=== PATIENT | male | born 1960 | race Caucasian/White ===

== ENCOUNTER 2022-11-27 08:27 | Emergency (ER) | payer BC ==
[2022-11-27 08:44] VITALS: RESP 18
[2022-11-27] MEDS ORDERED: SODIUM CHLORIDE 0.9% 500 ML 500 ML IV STA (09:17)
[2022-11-27 09:47] LABS: ALT 35 U/L (4-49); AST 35 U/L (17-59); African American GFR (CKD) >90 (>60 ml/min/1.73 sqM); Albumin 4.4 g/dL (3.5-5.0); Alkaline Phosphatase 54 U/L (38-126); Anion Gap 7 mmol/L; Blood Urea Nitrogen 15 mg/dL (9-20); Calcium 9.1 mg/dL (8.4-10.2); Carbon Dioxide 25 mmol/L (22-30); Chloride 106 mmol/L (98-107); Glucose 175 mg/dL (74-99); Magnesium 1.9 mg/dL (1.6-2.3); Non-African American GFR(CKD) >90 (>60 ml/min/1.73 sqM); Potassium 4.7 mmol/L (3.5-5.1); Sodium 138 mmol/L (137-145); Total Bilirubin 0.5 mg/dL (0.2-1.3); Total Protein 7.2 g/dL (6.3-8.2)
[2022-11-27 09:48] LABS: Basophils # (A) 0.1 k/uL (0-0.2); Basophils % (A) 1 %; Eosinophils # (A) 0.1 k/uL (0-0.7); Eosinophils % (A) 1 %; HGB 13.4 gm/dL (13.0-17.5); Lymphocytes # (A) 1.3 k/uL (1.0-4.8); Lymphocytes % (A) 20 %; MCH 29.1 pg (25.0-35.0); MCHC 33.4 g/dL (31.0-37.0); MCV 87.1 fL (80.0-100.0); Mean Platelet Volume 7.6; Monocytes # (A) 0.7 k/uL (0-1.0); Monocytes % (A) 11 %; Neutrophils # (A) 4.2 k/uL (1.3-7.7); Neutrophils % (A) 64 %; Platelet Count 300 k/uL (150-450); RBC 4.59 m/uL (4.30-5.90); RDW 14.1 % (11.5-15.5); WBC 6.6 k/uL (3.8-10.6)
[2022-11-27 09:56] LABS: Partial Thromboplastin Time 27.2 sec (22.0-30.0); Prothrombin Time 10.4 sec (9.0-12.0)
--- NOTE | 2022-11-27 10:03 | CT ---
EXAMINATION TYPE: CT abdomen pelvis w con CT DLP: 2455.2 mGycm, Automated exposure control for dose reduction was used. DATE OF EXAM: 11/27/2022 9:53 AM COMPARISON: None CLINICAL INDICATION:Male, 61 years old with history of pain, bleeding; rectal bleeding TECHNIQUE: Standard CT of the abdomen and pelvis following the administration of 100 cc of Isovue 3 70 IV contrast material. Coronal and sagittal reformats were performed. FINDINGS: Motion degraded examination. LOWER CHEST: Posterior dependent subsegmental atelectasis is noted. Mild cardiomegaly. ABDOMEN LIVER: Diffusely hypoattenuating parenchyma. GALLBLADDER AND BILE DUCTS: Unremarkable. PANCREAS: Unremarkable. SPLEEN: 1.5 cm hypodense lesion within the anterior spleen likely representing a benign hemangioma or cyst. ADRENAL GLANDS: Unremarkable. KIDNEYS AND URETERS: No evidence of hydronephrosis. The kidneys enhance symmetrically. Nonobstructive left lower pole 3 mm calculus. Left mid kidney 2.0 cm cyst. PELVIS BLADDER: Unremarkable. REPRODUCTIVE: Coarse calcifications of the prostate gland are identified. ABDOMEN & PELVIS STOMACH AND BOWEL: Small hiatal hernia, duodenum is unremarkable. Distal colonic diverticulosis witho ut evidence for acute diverticulitis. The appendix is within normal limits. No definitive hyperdense intraluminal material. No evidence of bowel obstruction. PERITONEUM: No evidence of pneumoperitoneum or free fluid. VASCULATURE: Mild atherosclerotic calcifications are present throughout the abdominal aorta and its b ranches. No evidence of aortic aneurysm. MUSCULOSKELETAL: No acute osseous abnormalities. Grade 1 anterolisthesis of L5 on S1 without evidence of pars defects. Mild multilevel degenerative disc disease. 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 Atrophy of the left iliopsoas muscle. There is calcification in the region of the left psoas muscle likely result of arthroplasty changes. Moderate osteoarthritic changes of the right hip. LYMPH NODES: No gross evidence for lymphadenopathy. SOFT TISSUE/ABDOMINAL WALL: Small fat filled umbilical hernia. IMPRESSION: 1. No acute abdominal/pelvic process. 2. Nonobstructive left renal calculus. 3. Colonic diverticulosis without evidence for acute diverticulitis.
[2022-11-27 10:12] VITALS: BP 136/77; PULSE 90
--- NOTE | 2022-11-27 10:37 | ED ---
GI Bleed HPI - General Chief complaint: GI Bleed Stated complaint: rectal bleeding, chest congestion Time Seen by Provider: 11/27/22 09:03 Source: patient, RN notes reviewed Mode of arrival: ambulatory Limitations: no limitations - History of Present Illness Initial comments: 61-year-old male presents emergency Department with chief complaint of rectal b leeding. Patient states she's been sick recently states that he was coughing states that he had a bowel movement states her some blood noted. Patient states he did have few episodes. Denies any feeling lightheaded, dizziness, chest pain, abdominal pain. Patient states on last colonoscopy was noted to have internal hemorrhoid. Patient states it is sore when is a bowel movement at times. Patient states is but no melena. He does admit that he's had this cough congestion for several days. - Related Data Home Medications Medication Instructions Recorded Confirmed Meloxicam Unknown Dosee 11/27/22 Metoprolol Unknown Dose 11/27/22 lisinopriL [Prinivil] 20 mg PO 11/27/22 Previous Rx's Medication Instructions Recorded Hydrocortisone/Pramoxine 1 applic RECTAL BID #10 gm 11/27/22 [Proctofoam-Hc 1%-1% Foam] Oseltamivir [Tamiflu] 75 mg PO Q12HR #10 cap 11/27/22 Allergies Allergy/AdvReac Type Severity Reaction Status Date / Time No Known Allergies Allergy Verified 11/27/22 08:44 Review of Systems ROS Statement: Those systems with pertinent positive or pertinent negative responses have been documented in the HPI. ROS Other: All systems not noted in ROS Statement are negative. Past Medical History Past Medical History: Hypertension Additional Past Medical History / Comment(s): internal hemorrhoid History of Any Multi-Drug Resistant Organisms: None Reported Past Surgical History: Joint Replacement Past Psychological History: No Psychological Hx Reported Past Alcohol Use History: None Reported Past Drug Use History: None Reported General Exam Limitations: no limitations General appearance: alert, in no apparent distress Head exam: Present: atraumatic, normocephalic, normal inspection Eye exam: Present: normal appearance, PERRL, EOMI. Absent: scleral icterus, conjunctival injection, periorbital swelling ENT exam: Present: normal exam, normal oropharynx, mucous membranes moist Neck exam: Present: normal inspection, full ROM. Absent: tenderness, meningismus, lymphadenopathy Respiratory exam: Present: normal lung sounds bilaterally. Absent: respiratory distress, wheezes, rales, rhonchi, stridor Cardiovascular Exam: Present: regular rate, normal rhythm, normal heart sounds. Absent: systolic murmur, diastolic murmur, rubs, gallop, clicks GI/Abdominal exam: Present: soft, normal bowel sounds. Absent: distended, tenderness, guarding, rebound, rigid Neurological exam: Present: alert Skin exam: Present: warm, dry, intact, normal color. Absent: rash Course Vital Signs 11/27/22 11/27/22 08:38 10:11 Temperature 99.1 F Pulse Rate 98 90 Respiratory 18 18 Rate Blood Pressure 143/86 136/77 O2 Sat by Pulse 99 97 Oximetry Medical Decision Making - Medical Decision Making 61-year-old presented for rectal bleeding. Patient has known internal hemorrhoid mostly because his bleeding. Hemoglobin is stable patient is very minimal bleeding. Patient will be discharged stable condition with return parameters. Patient is influenza A+. - Lab Data Result diagrams: 11/27/22 09:19 11/27/22 09:19 Lab Results 11/27/22 11/27/22 11/27/22 Range/Units 09:19 09:19 09:19 WBC 6.6 (3.8-10.6) k/uL RBC 4.59 (4.30-5.90) m/uL Hgb 13.4 (13.0-17.5) gm/dL Hct 40.0 (39.0-53.0) % MCV 87.1 (80.0-100.0) fL MCH 29.1 (25.0-35.0) pg MCHC 33.4 (31.0-37.0) g/dL RDW 14.1 (11.5-15.5) % Plt Count 300 (150-450) k/uL MPV 7.6 Neutrophils % 64 % Lymphocytes % 20 % Monocytes % 11 % Eosinophils % 1 % Basophils % 1 % Neutrophils # 4.2 (1.3-7.7) k/uL Lymphocytes # 1.3 (1.0-4.8) k/uL Monocytes # 0.7 (0-1.0) k/uL Eosinophils # 0.1 (0-0.7) k/uL Basophils # 0.1 (0-0.2) k/uL PT 10.4 (9.0-12.0) sec INR 1.0 (<1.2) APTT 27.2 (22.0-30.0) sec Sodium 138 (137-145) mmol/L Potassium 4.7 (3.5-5.1) mmol/L Chloride 106 (98-107) mmol/L Carbon Dioxide 25 (22-30) mmol/L Anion Gap 7 mmol/L BUN 15 (9-20) mg/dL Creatinine 0.75 (0.66-1.25) mg/dL Est GFR (CKD-EPI)AfAm >90 (>60 ml/min/1.73 sqM) Est GFR (CKD-EPI)NonAf >90 (>60 ml/min/1.73 sqM) Glucose 175 H (74-99) mg/dL Calcium 9.1 (8.4-10.2) mg/dL Magnesium 1.9 (1.6-2.3) mg/dL Total Bilirubin 0.5 (0.2-1.3) mg/dL AST 35 (17-59) U/L ALT 35 (4-49) U/L Alkaline Phosphatase 54 (38-126) U/L Total Protein 7.2 (6.3-8.2) g/dL Albumin 4.4 (3.5-5.0) g/dL Influenza Type A (PCR) (Not Detectd) Influenza Type B (PCR) (Not Detectd) RSV (PCR) (Not Detectd) SARS-CoV-2 (PCR) (Not Detectd) 11/27/22 Range/Units 09:19 WBC (3.8-10.6) k/uL RBC (4.30-5.90) m/uL Hgb (13.0-17.5) gm/dL Hct (39.0-53.0) % MCV (80.0-100.0) fL MCH (25.0-35.0) pg MCHC (31.0-37.0) g/dL RDW (11.5-15.5) % Plt Count (150-450) k/uL MPV Neutrophils % % Lymphocytes % % Monocytes % % Eosinophils % % Basophils % % Neutrophils # (1.3-7.7) k/uL Lymphocytes # (1.0-4.8) k/uL Monocytes # (0-1.0) k/uL Eosinophils # (0-0.7) k/uL Basophils # (0-0.2) k/uL PT (9.0-12.0) sec INR (<1.2) APTT (22.0-30.0) sec Sodium (137-145) mmol/L Potassium (3.5-5.1) mmol/L Chloride (98-107) mmol/L Carbon Dioxide (22-30) mmol/L Anion Gap mmol/L BUN (9-20) mg/dL Creatinine (0.66-1.25) mg/dL Est GFR (CKD-EPI)AfAm (>60 ml/min/1.73 sqM) Est GFR (CKD-EPI)NonAf (>60 ml/min/1.73 sqM) Glucose (74-99) mg/dL Calcium (8.4-10.2) mg/dL Magnesium (1.6-2.3) mg/dL Total Bilirubin (0.2-1.3) mg/dL AST (17-59) U/L ALT (4-49) U/L Alkaline Phosphatase (38-126) U/L Total Protein (6.3-8.2) g/dL Albumin (3.5-5.0) g/dL Influenza Type A (PCR) Detected A (Not Detectd) Influenza Type B (PCR) Not Detected (Not Detectd) RSV (PCR) Not Detected (Not Detectd) SARS-CoV-2 (PCR) Not Detected (Not Detectd) Disposition Clinical Impression: Influenza A, Rectal bleeding, Internal hemorrhoid Disposition: HOME SELF-CARE Condition: Stable Instructions (If sedation given, give patient instructions): Influenza (ED) Additional Instructions: Please return to the Emergency Department if symptoms worsen or any other concerns. Prescriptions: Hydrocortisone/Pramoxine [Proctofoam-Hc 1%-1% Foam] 1 applic RECTAL BID #10 gm Oseltamivir [Tamiflu] 75 mg PO Q12HR #10 cap Is patient prescribed a controlled substance at d/c from ED?: No Referrals: Bri Leiva DO [Primary Care Provider] - 1-2 days Time of Disposition: 10:30
[2022-11-27 10:52] VITALS: TEMP 98.9
== END 2022-11-27 10:57 | disposition home or self-care (01) ==
LOC: EC 08:27
DX: J10.1 Influenza due to other identified influenza virus with other respiratory manifestations (principal); K64.8 Other hemorrhoids; K57.30 Diverticulosis of large intestine without perforation or abscess without bleeding; I10 Essential (primary) hypertension; Z79.899 Other long term (current) drug therapy; Z20.822 Contact with and (suspected) exposure to COVID-19
CPT/HCPCS: 36415; 80053; 83735; 85025; 85610; 85730; 87636; 74177; 99285; 96360; Q9967